=== PATIENT | male | born 1995 | race Hispanic/Latino ===

== ENCOUNTER → 2018-12-27 | Outpatient (REF) | payer OTHER ==
[~2018-12-27] MED LIST: BACTRIM DS1 TAB PO; CEPHALEXIN500 MG OR; GENTAMICIN SULF5 ML OP
== END | disposition home or self-care (01) | DRG 392 ==
LOC: CT 12-10 14:00
PROVIDERS: ATTEND Physician Assistant
DX: R10.32 Left lower quadrant pain (principal)
CPT/HCPCS: Q9967